=== PATIENT | female | born 1950 | race Two or more races ===

== ENCOUNTER 2023-10-20 20:18 | Emergency (ER) | payer OTHER ==
[~2023-10-20] VITALS: Ht 152.4 cm; Wt 67.6 kg
[2023-10-20] MEDS ORDERED: ATORVASTATIN CA20 MG (20:46)
[2023-10-20] MEDS ORDERED: AVAPRO300 MG (20:46)
== END 2023-10-20 21:33 | disposition home or self-care (01) ==
LOC: ER 20:20
DX: M43.6 Torticollis (principal)
CPT/HCPCS: 96372; 99284; J1885

== ENCOUNTER 2023-11-25 11:38 | Emergency (ER) | payer OTHER ==
[~2023-11-25] VITALS: Ht 154.9 cm; Wt 56.7 kg
[~2023-11-25 11:38] MED LIST: ATORVASTATIN CA20 MG; AVAPRO300 MG
[2023-11-25] MEDS ORDERED: FAMCICLOVIR500 MG PO (13:45)
== END 2023-11-25 13:53 | disposition home or self-care (01) ==
LOC: ER 11:38
DX: R51.9 Headache, unspecified (principal); B02.39 Other herpes zoster eye disease; I10 Essential (primary) hypertension

== ENCOUNTER → 2023-12-12 | Emergency (ER) | payer OTHER ==
[~2023-12-12] VITALS: Ht 154.9 cm; Wt 68.0 kg
[~2023-12-12] MED LIST changes: +FAMCICLOVIR500 MG PO; +NEURONTIN300 MG
== END | disposition left against medical advice (07) ==
LOC: ER 22:03
DX: Z53.21 Procedure and treatment not carried out due to patient leaving prior to being seen by health care provider (principal)